=== PATIENT | male | born 1985 | race Caucasian/White ===

== ENCOUNTER 2019-05-28 03:19 | Emergency (ER) | payer OTHER ==
[~2019-05-28] VITALS: Ht 175.3 cm; Wt 93.0 kg
[2019-05-28 03:22] VITALS: BP 142/94
[2019-05-28] MEDS ORDERED: IBUPROFEN 600 MG TABLET PO ONE ×2 (03:30→03:40)
[2019-05-28] MEDS ORDERED: HYDROCODONE/APAP 10/325MG 1 EA TABLET PO ONE (03:30)
[2019-05-28] MEDS ORDERED: HYDROCODONE/APAP 10/325MG 1 EA TABLET ONE (03:39)
--- NOTE | 2019-05-28 03:44 | NUR ---
PT BIB [facility] C/O LEFT LOWER EXTREMITY PAIN. PT STATES HE WAS CHASING AFTER SOMEONE WHEN HE FELT HIS HAMSTRING PULL. AAOX4. NO SOB. BREATHING EVENLY AND UNLABORED. C/O 4/10 PAIN WHEN RESTING, 7-8/10 PAIN WHEN MOVING.
--- NOTE | 2019-05-28 03:52 | NUR ---
Patient discharged to home in stable condition. Written and verbal after care instructions given. Patient verbalizes understanding of instruction.
== END 2019-05-28 04:31 | disposition home or self-care (01) ==
LOC: ER 03:21
DX: S79.821A Other specified injuries of right thigh, initial encounter (principal); F17.200 Nicotine dependence, unspecified, uncomplicated; X58.XXXA Exposure to other specified factors, initial encounter; Y93.89 Activity, other specified; Y92.89 Other specified places as the place of occurrence of the external cause; Y99.8 Other external cause status